=== PATIENT | female | born 1985 | race Caucasian/White ===

== ENCOUNTER 2017-01-06 18:44 | Emergency (ER) | payer OTHER ==
[~2017-01-06] VITALS: Ht 167.6 cm; Wt 113.4 kg
[~2017-01-06 18:44] MED LIST: CLARITIN10 M3 PO; COLACE100 MG PO; DERMOPLAST PAIN78 GM TOP; FLONASE16 GM NASBOTH; LAN-O-SOOTHE7 GM TOP; METFORMIN HCL500 M1 PO; MOTRIN800 MG PO; PRENATAL PLUS I1 TAB PO; SYNTHROID75 MCG PO; VITAMIN B-6100 MG PO
== END 2017-01-06 19:50 | disposition short-term general hospital (02) ==
LOC: ER 18:44
DX: F53 Mental and behavioral disorders associated with the puerperium, not elsewhere classified (principal); R11.2 Nausea with vomiting, unspecified; F41.9 Anxiety disorder, unspecified; Z79.84 Long term (current) use of oral hypoglycemic drugs; Z79.899 Other long term (current) drug therapy; Z88.8 Allergy status to other drugs, medicaments and biological substances